=== PATIENT | female | born 1965 | race Caucasian/White ===

== ENCOUNTER → 2018-10-16 | Outpatient (CLI) | payer BC ==
--- NOTE | 2018-10-16 10:45 | XR ---
EXAMINATION TYPE: XR ankle complete RT DATE OF EXAM: 10/16/2018 COMPARISON: NONE HISTORY: Pain and swelling laterally FINDINGS: Three views of the ankle demonstrate the ankle mortise to be intact and symmetric. The joint spaces are preserved. Spurring along the medial malleolus is seen and there is a well-corticated tiny densit y adjacent the medial malleolus likely the basis of previous trauma. Plantar calcaneal spur noted. IMPRESSION: 1. No definite acute fracture or dislocation, if symptoms persist follow-up study in 7 to 10 days wou ld be suggested.
== END | disposition home or self-care (01) ==
LOC: RADXRYALE 09:53
PROVIDERS: ATTEND Internal Medicine
DX: M25.571 Pain in right ankle and joints of right foot (principal)